=== PATIENT | female | born 1955 | race Caucasian/White ===

== ENCOUNTER → 2016-09-18 | Outpatient (CLI) | payer OTHER | LOC: FIMAGING 07:46 | PROVIDERS: ATTEND Obstetrics & Gynecology Gynecology | DX: Z12.31 Encounter for screening mammogram for malignant neoplasm of breast (principal); Z80.3 Family history of malignant neoplasm of breast | CPT/HCPCS: G0202 ==

== ENCOUNTER 2017-07-31 15:10 | Emergency (ER) | payer OTHER ==
--- NOTE | 2017-07-31 15:31 | CPEKG ---
Heart Rate: 91 RR Interval: 659 P-R Interval: 148 QRSD Interval: 80 QT Interval: 360 QTC Interval: 443 P [place]: -27 QRS [place]: 66 T Wave [place]: 22 EKG Severity - NORMAL ECG - EKG Impression: SINUS RHYTHM Electronically Signed By: Francisco Leary 31-Jul-2017 16:41:14
[2017-07-31] MEDS ORDERED: NS 500 ML IV ONE (15:37)
--- NOTE | 2017-07-31 15:46 | EDPHY ---
H & P Time Seen by Provider: 07/31/17 15:28 HPI/ROS: HPI Lightheaded, palpitations. 61-year-old female by private vehicle. This patient has a history of palpitations. She is currently being seen and evaluated at [facility] by a instrument engineer named Dr. Deng. She recently had a Holter monitor placed and just turned that in for analysis. She is scheduled to have an echocardiogram on August [address] Deng again on August 20. She reports that she was driving home from [place]. She reports that she has been under a lot of stress lately. She reports that she started feeling tingling and numbness in her right arm and her left toe. She reports that while driving she felt the same palpitation she is now been feeling on and off for 2 months. She reports that she felt lightheaded and had some blurring of her vision. She went home. She got something to eat. She laid down. The symptoms persisted. She spoke with her friend who has a history of cardiac arrest and her friend told her to come to the emergency department. Now that she is in the emergency department she is feeling better. She denies any palpitations at this time. She reports feeling more relaxed. Denies associated chest pain or shortness breath. She reports that she has had recent blood work here and it has all been normal including thyroid studies. ROS: Constitutional: No fever, no chills. As above. Eyes: No discharge. No changes in vision. ENT: No sore throat. No nasal congestion or rhinorrhea. Respiratory: No cough. No shortness of breath. Cardiac: As above. Gastrointestinal: No abdominal pain, no vomiting, no diarrhea. Genitourinary: No hematuria. No dysuria or increased frequency with urination. Musculoskeletal: No back pain. No neck pain. No myalgias or arthralgias. Skin: No rashes. Neurological: No headache. No focal weakness. As above. Past medical history: Degenerative disc disease of the cervical spine. Because of this she has some chronic right upper extremity numbness. She reports however that the numbness she was feeling prior to arrival was greater and felt more tingling as well as tingling in her left big toe. Social history: Nonsmoker. No alcohol. Currently here by herself. Physical Exam: General Appearance: Alert, anxious. This patient is responding to questions appropriately and in full sentences. This patient appears well-hydrated and well-nourished. Eyes: Pupils equal and round no pallor or injection. No lid edema, erythema or injection. Respiratory: There are no retractions, lungs are clear to auscultation with good air movement bilaterally. Cardiovascular: Regular rate and rhythm. No murmu appreciated r. Gastrointestinal: Abdomen is soft and nontender, no masses, bowel sounds normal. No focal tenderness at McBurney's point. No Wong sign. Neurological: Motor sensory function is grossly intact. Cranial nerves are normal. Gait is normal. Skin: Warm and dry, no rashes. Musculoskeletal: Neck is supple and nontender. Extremities are symmetrical. All joints range without pain or impingement. Psychiatric: No agitation. No depression. Database: EKG: EKG time is 3:30 p.m.; EKG shows a narrow complex normal sinus rhythm with a ventricular rate of 91. The VT, QRS, QT intervals are within normal limits. There are no ST-T wave changes indicative of ischemic or injury pattern. No evidence of right heart strain. No evidence of WPW, Brugada syndrome, hypertrophic cardiomyopathy. Interpreted by me. Imaging: Procedures: Emergency department course: Triage vital signs reviewed. She is moderately hypertensive. Vital signs are otherwise normal. IV was placed. She was placed on a rn cardiac rehab. She will be given 500 cc of IV normal saline over 1 hr. EKG obtained and reviewed by myself. She declines anxiolytics. I have reviewed her previous and recent blood work. Normal TSH, metabolic panel, liver function testing and CBC. 4:20 p.m., patient re-evaluated. Resting comfortably at this time. groundwater monitoring technician shows a narrow complex normal sinus rhythm with ventricular rate of 82. Pulse oximetry 94% on room air. She has no complaints at this time. She has remained asymptomatic while in the emergency department. She feels comfortable going home and I feel she is safe for discharge. She will follow up with her instrument engineer at [facility] this week. Return to emergency department precautions were thoroughly reviewed with her. All of her questions were answered. She was discharged from the emergency department in good condition. Differential Diagnosis: The differential diagnosis on this patient includes but is not limited to anxiety reaction, PVCs, PACs, SVT. Acute coronary syndrome, sick sinus syndrome , pulmonary embolism, thyroid storm unlikely. This represents a partial list of diagnoses considered. These considerations are based on history, physical exam, past history, reassessment and diagnostic testing. Smoking Status: Never smoked Constitutional: Initial Vital Signs Temperature (C) 36.5 C 07/31/17 15:11 Heart Rate 94 07/31/17 15:11 Respiratory Rate 16 07/31/17 15:11 Blood Pressure 163/105 H 07/31/17 15:11 O2 Sat (%) 98 07/31/17 15:11 O2 Delivery Mode Room Air Allergies/Adverse Reactions: No Known Drug Allergies Allergy (Verified 07/31/17 15:16) Home Medications: Medication Instructions Recorded Ambien 07/31/17 B-12 07/31/17 Biotin 07/31/17 Estradiol 07/31/17 Medical Decision Making - Data Points Laboratory Results: 07/31/17 07/31/17 15:41 15:37 POC Hgb 14.6 gm/dL gm/dL (12.6-16.3) POC Hct 43 % % (38-47) POC Sodium 141 mEq/L mEq/L (135-145) POC Potassium 3.4 mEq/L mEq/L (3.3-5.0) POC Chloride 101 mEq/L mEq/L (97-110) POC BUN 10 mg/dL mg/dL (7-23) POC Creatinine 0.7 mg/dL mg/dL (0.6-1.0) POC Glucose 146 mg/dL H mg/dL (70-100) POC Troponin I 0.01 ng/mL ng/mL (0.00-0.08) Medications Given: Discontinued Medications Sodium Chloride (Ns) 500 mls @ 1,000 mls/hr IV EDNOW ONE PRN Reason: Protocol Stop: 07/31/17 16:06 Last Admin: 07/31/17 15:48 Dose: 500 mls Point of Care Test Results: Chemistry 07/31/17 07/31/17 15:41 15:37 POC Sodium 141 mEq/L mEq/L (135-145) POC Potassium 3.4 mEq/L mEq/L (3.3-5.0) POC Chloride 101 mEq/L mEq/L (97-110) POC BUN 10 mg/dL mg/dL (7-23) POC Creatinine 0.7 mg/dL mg/dL (0.6-1.0) POC Glucose 146 mg/dL H mg/dL (70-100) POC Troponin I 0.01 ng/mL ng/mL (0.00-0.08) ISTAT H&H 07/31/17 15:41 POC Hgb 14.6 gm/dL gm/dL (12.6-16.3) POC Hct 43 % % (38-47) Departure - Departure Disposition: Home, Routine, Self-Care Clinical Impression: Palpitations, Stress reaction Condition: Good Instructions: Heart Palpitations (ED) Additional Instructions: Read and follow provided instructions. Follow-up with your instrument engineer at least by phone tomorrow to describe symptoms. The results of your rn cardiac rehab testing should be available by tomorrow or the next day. Take your medication as prescribed. Keep well hydrated. Return to the emergency department for worsening symptoms, chest pain, difficulty breathing, palpitations or other serious concerns. Referrals: NONE *PRIMARY CARE P,. [Primary Care Provider] - As per Instructions
[2017-07-31 16:35] VITALS: BP 140/93
== END 2017-07-31 16:34 | disposition home or self-care (01) ==
DX: R00.2 Palpitations (principal); F43.9 Reaction to severe stress, unspecified; E86.9 Volume depletion, unspecified
CPT/HCPCS: 82435-PO; 82565-PO; 82947-PO; 84132-PO; 84295-PO; 84484-PO; 84520-PO; 85014-PO

== ENCOUNTER → 2017-12-13 | Outpatient (CLI) | payer OTHER | LOC: BMCIMAGING 08:36 | PROVIDERS: ATTEND Obstetrics & Gynecology Gynecology | DX: Z12.31 Encounter for screening mammogram for malignant neoplasm of breast (principal) ==

== ENCOUNTER → 2017-12-26 | Outpatient (CLI) | payer OTHER | LOC: BMCIMAGING 10:51 | PROVIDERS: ATTEND Obstetrics & Gynecology Gynecology | DX: R92.8 Other abnormal and inconclusive findings on diagnostic imaging of breast (principal) ==